=== PATIENT | male | born 1935 | race Two or more races ===

== ENCOUNTER 2022-01-13 08:47 | Emergency (ER) | payer MEDICARE ==
[~2022-01-13] VITALS: Ht 172.7 cm; Wt 97.7 kg
[2022-01-13 09:08] VITALS: BP 175/87
[2022-01-13] MEDS ORDERED: LIDOcaine 2% 10ml TOPICAL JELLY (Urojet) MM ONE (09:20)
[2022-01-13] MEDS ORDERED: LIDOcaine 2% 10ml TOPICAL JELLY (Urojet) TP ONE (09:20)
[2022-01-13 10:32] LABS: CLARITY,URINE SLIGHTLY CLOUDY (Clear); COLOR,URINE YELLOW (Yellow); GLUCOSE, URINE NEGATIVE (Neg); KETONES,URINE NEGATIVE (Neg); LEUKOCYTE ESTERASE ,URINE NEGATIVE (Neg); NITRITES, URINE NEGATIVE (Neg); OCCULT BLOOD,URINE LARGE (Neg); PH,URINE 5.5 (4.8-8.0); PROTEIN,URINE NEGATIVE (Neg); UROBILINOGEN,URINE 0.2 E.U/dL (0.2-1.0)
[2022-01-13 10:33] LABS: UA COLLECTION TYPE STRAIGHT CATH
[2022-01-13 10:40] LABS: RBC,URINE TNTC /HPF (0-2); WBC,URINE NONE SEEN /HPF (0-4)
[2022-01-13 10:41] LABS: BACTERIA,URINE NONE SEEN /HPF (Neg); MUCUS STRANDS NONE SEEN /LPF (Neg); SQUAMOUS EPITHELIAL CELL,UR NONE SEEN /LPF (FEW)
== END 2022-01-13 10:17 | disposition home or self-care (01) ==
LOC: ER 08:48
DX: N40.1 Benign prostatic hyperplasia with lower urinary tract symptoms (principal); R33.8 Other retention of urine; I10 Essential (primary) hypertension; M19.90 Unspecified osteoarthritis, unspecified site; Z88.1 Allergy status to other antibiotic agents
CPT/HCPCS: 51702; 81001; 99284; A4340

== ENCOUNTER 2022-01-19 08:14 | Emergency (ER) | payer MEDICARE ==
[~2022-01-19] VITALS: Ht 172.7 cm; Wt 98.2 kg
[2022-01-19 08:27] VITALS: BP 141/84
[2022-01-19] MEDS ORDERED: HYDROcodone/acetaminophen 5mg/325mg tablet PO ONE (09:25)
[2022-01-19] MEDS ORDERED: IBUP-1984 PO ×2 (09:27)
[2022-01-20] MEDS ORDERED: CEPH250T PO (11:12)
== END 2022-01-19 11:25 | disposition home or self-care (01) ==
LOC: ER 08:14
DX: R33.9 Retention of urine, unspecified (principal); I10 Essential (primary) hypertension; Z88.0 Allergy status to penicillin
CPT/HCPCS: 99284

== ENCOUNTER 2022-01-20 09:50 | Emergency (ER) | payer MEDICARE ==
[~2022-01-20] VITALS: Ht 172.7 cm; Wt 97.7 kg
[~2022-01-20 09:50] MED LIST: IBUP-1984 PO
[2022-01-20 09:53] VITALS: BP 144/79
[2022-01-20 10:21] LABS: CLARITY,URINE CLEAR (Clear); COLOR,URINE YELLOW (Yellow); GLUCOSE, URINE NEGATIVE (Neg); KETONES,URINE NEGATIVE (Neg); LEUKOCYTE ESTERASE ,URINE TRACE (Neg); NITRITES, URINE NEGATIVE (Neg); OCCULT BLOOD,URINE SMALL (Neg); PROTEIN,URINE NEGATIVE (Neg)
[2022-01-20 10:35] LABS: UA COLLECTION TYPE CLN CATCH MIDSTREAM
[2022-01-20 10:40] LABS: BACTERIA,URINE FEW /HPF (Neg); MUCUS STRANDS NONE SEEN /LPF (Neg); SQUAMOUS EPITHELIAL CELL,UR FEW /LPF (FEW)
[2022-01-20] MEDS ORDERED: LIDOcaine 2% 10ml TOPICAL JELLY (Urojet) TP ONE (10:40)
[2022-01-20] MEDS ORDERED: CEPH250T PO (11:12)
--- NOTE | 2022-01-20 11:20 | NUR ---
SEE PROVIDER GENERAL ASSESSMENT
== END 2022-01-20 11:20 | disposition home or self-care (01) ==
LOC: ER 09:50
DX: N40.1 Benign prostatic hyperplasia with lower urinary tract symptoms (principal); R33.8 Other retention of urine; N39.0 Urinary tract infection, site not specified; I10 Essential (primary) hypertension; M19.90 Unspecified osteoarthritis, unspecified site; Z88.1 Allergy status to other antibiotic agents
CPT/HCPCS: 51702; 81001; 87088; 99284; A4340; A4358; A5200

== ENCOUNTER 2022-01-20 15:27 | Emergency (ER) | payer MEDICARE ==
[~2022-01-20] VITALS: Ht 172.7 cm; Wt 97.7 kg
[~2022-01-20 15:27] MED LIST changes: +CEPH250T PO; -IBUP-1984 PO
[2022-01-20 15:49] VITALS: BP 129/88
--- NOTE | 2022-01-20 18:03 | NUR ---
CATH FLUSHED 200ML WATER PT TOLERATED PROCEDURE WELL WITH NO VERBAL COMPLAINTS
--- NOTE | 2022-01-20 18:35 | NUR ---
18F CUDE CATH INSERTED. 50CC URINE OUT.
== END 2022-01-20 18:37 | disposition home or self-care (01) ==
LOC: ER 15:28
DX: T83.038A Leakage of other urinary catheter, initial encounter (principal); R33.9 Retention of urine, unspecified; N39.0 Urinary tract infection, site not specified; I10 Essential (primary) hypertension; M19.90 Unspecified osteoarthritis, unspecified site; Z72.89 Other problems related to lifestyle; Z88.1 Allergy status to other antibiotic agents; Z79.2 Long term (current) use of antibiotics; Y84.6 Urinary catheterization as the cause of abnormal reaction of the patient, or of later complication, without mention of misadventure at the time of the procedure
CPT/HCPCS: 99281

== ENCOUNTER 2022-01-20 20:35 | Emergency (ER) | payer MEDICARE ==
[~2022-01-20] VITALS: Ht 172.7 cm; Wt 97.7 kg
[2022-01-20] MEDS ORDERED: opium/belladonna alkaloids No. 15A 30mg rectal suppository RC ONE (21:30)
[2022-01-20 22:09] VITALS: BP 132/86
== END 2022-01-20 22:10 | disposition home or self-care (01) ==
LOC: ER 20:35
DX: T83.038D Leakage of other urinary catheter, subsequent encounter (principal); N32.89 Other specified disorders of bladder; I10 Essential (primary) hypertension; M19.90 Unspecified osteoarthritis, unspecified site; Z88.1 Allergy status to other antibiotic agents; Z79.2 Long term (current) use of antibiotics; Y84.6 Urinary catheterization as the cause of abnormal reaction of the patient, or of later complication, without mention of misadventure at the time of the procedure
CPT/HCPCS: 99283; 99284

== ENCOUNTER 2022-01-22 17:48 | Emergency (ER) | payer MEDICARE ==
[~2022-01-22] VITALS: Ht 172.7 cm; Wt 110.0 kg
[2022-01-22] MEDS ORDERED: CEPH250T PO (18:43)
[2022-01-22] MEDS ORDERED: LIDOcaine 2% 10ml TOPICAL JELLY (Urojet) TP ONE (18:45)
[2022-01-22] MEDS ORDERED: cephalexin 250mg capsule PO ONE (18:45)
--- NOTE | 2022-01-22 19:43 | NUR ---
yañez irrigated until brandon blood clots removed, clear return via cath noted presently
[2022-01-22 20:00] VITALS: BP 145/81
== END 2022-01-22 20:02 | disposition home or self-care (01) ==
LOC: ER 17:49
DX: T83.098A Other mechanical complication of other urinary catheter, initial encounter (principal); I10 Essential (primary) hypertension; Z88.0 Allergy status to penicillin
CPT/HCPCS: 51702; 99284; A4358; A5200

== ENCOUNTER 2022-01-22 22:11 | Emergency (ER) | payer MEDICARE ==
[~2022-01-22] VITALS: Ht 177.8 cm; Wt 84.0 kg
[2022-01-22] MEDS ORDERED: LIDOcaine 2% 10ml TOPICAL JELLY (Urojet) MM ONE (22:15)
--- NOTE | 2022-01-22 23:05 | NUR ---
Pt came back to the ER as his catheter was leaking. RN did a few things to try to get it to stop leaking, including inflating balloon to 15 ml of sterile water, however, it continued to leak around catheter. There were no clots in there either and it was patent. Ended up d/c the 18 F catheter and a fresh 22 ga catheter placed and it is just fine.
== END 2022-01-22 23:07 | disposition home or self-care (01) ==
LOC: ER 22:12
DX: T83.098A Other mechanical complication of other urinary catheter, initial encounter (principal); I10 Essential (primary) hypertension; E78.00 Pure hypercholesterolemia, unspecified; Z88.1 Allergy status to other antibiotic agents; Z79.899 Other long term (current) drug therapy
CPT/HCPCS: 51702; 99284